=== PATIENT | female | born 1965 | race African-American/Black ===

== ENCOUNTER 2017-06-12 16:34 | Emergency (ER) | payer SELFPAY ==
[~2017-06-12] VITALS: Ht 167.6 cm; Wt 81.5 kg
[~2017-06-12 16:34] MED LIST: Z.0.NO CURRENT MEDS
[2017-06-12 16:35] VITALS: BP 143/78; PULSE 95; RESP 18; TEMP 99.3; O2SAT 98
[2017-06-12] MEDS ORDERED: ASPIRIN 81 MG CHEW TAB CHEW ONE (16:45)
[2017-06-12 17:07] LABS: AUTOMATED NEUTROPHIL # 5.1 TH/MM3 (1.8-7.7); BASOPHIL # 0.1 TH/MM3 (0-0.2); BASOPHIL % 0.8 % (0.0-2.0); EOSINOPHIL # 0.1 TH/MM3 (0-0.4); EOSINOPHIL % 0.9 % (0.0-4.0); HEMATOCRIT 40.4 % (35.0-46.0); HEMOGLOBIN 13.4 GM/DL (11.6-15.3); LYMPH % 34.9 % (9.0-44.0); LYMPHOCYTE # 3.2 TH/MM3 (1.0-4.8); MEAN CELL VOLUME 92.5 FL (80.0-100.0); MEAN CORPUSCULAR HEMOGLOBIN 30.6 PG (27.0-34.0); MEAN CORPUSCULAR HGB CONC 33.1 % (32.0-36.0); MEAN PLATELET VOLUME 8.6 FL (7.0-11.0); MONO % 8.3 % (0.0-8.0); MONOCYTE # 0.8 TH/MM3 (0-0.9); NEUT % 55.1 % (16.0-70.0); PLATELET COUNT 217 TH/MM3 (150-450); RED BLOOD COUNT 4.37 MIL/MM3 (4.00-5.30); RED CELL DISTRIBUTION WIDTH 12.5 % (11.6-17.2); WHITE BLOOD COUNT 9.3 TH/MM3 (4.0-11.0)
[2017-06-12 17:17] LABS: PROTHROMBIN TIME - PATIENT 9.8 SEC (9.8-11.6)
[2017-06-12 17:20] LABS: ALBUMIN 3.7 GM/DL (3.4-5.0); AST (GOT) 16 U/L (15-37); BICARBONATE 22.5 MEQ/L (21.0-32.0); BLOOD UREA NITROGEN 8 MG/DL (7-18); CALCIUM 8.8 MG/DL (8.5-10.1); CHLORIDE 106 MEQ/L (98-107); CREATININE 0.77 MG/DL (0.50-1.00); GLOMERULAR FILTRATION RATE 96 ML/MIN (>89); GLUCOSE,RANDOM 95 MG/DL (74-106); LIPASE 170 U/L (73-393); SODIUM (NA) 137 MEQ/L (136-145)
[2017-06-12 17:21] LABS: ALT (GPT) 24 U/L (10-53)
[2017-06-12 17:25] LABS: ALKALINE PHOSPHATASE 109 U/L (45-117); TOTAL BILIRUBIN ADULT 0.2 MG/DL (0.2-1.0); TOTAL PROTEIN 7.5 GM/DL (6.4-8.2); TROPONIN I LESS THAN 0.02 NG/ML (0.02-0.05)
--- NOTE | 2017-06-12 17:30 | RADRPT ---
EXAM DATE/TIME: 06/12/2017 16:54 [place] COMPARISON: No previous studies available for comparison. INDICATIONS : Chest pain. MEDICAL HISTORY : None. SURGICAL HISTORY : None. ENCOUNTER: Initial ACUITY: 1 day PAIN SCORE: 5/10 LOCATION: Bilateral chest FINDINGS: PA and lateral views of the chest demonstrate the lungs to be symmetrically aerated without evidence of mass, infiltrate or effusion. The cardiomediastinal contours are unremarkable. Osseous structure s are intact. CONCLUSION: No acute disease. Aiden Moctezuma MD FACR on June 12, 2017 at 17:27 Board Certified Radiologist. This report was verified electronically.
--- NOTE | 2017-06-13 20:51 | EKG ---
Date Performed: 06/12/2017 Time Performed: 16:45:19 PTAGE: 51 years EKG: Sinus rhythm POSSIBLE LEFT ATRIAL ENLARGEMENT BORDERLINE ECG PREVIOUS TRACING : 08/24/2008 10.01 SINCE PRIOR TRACING NO SIGNIFICANT CHANGE NOTED DOCTOR: Bethany Cabrera Interpretating Date/Time 06/13/2017 20:50:36
--- NOTE | 2017-06-19 12:31 | PD ---
HPI Chief Complaint: Chest Pain Time Seen by Provider: 16:36 Travel History International Travel<30 days: No Contact w/Intl Traveler<30days: No Traveled to known affect area: No History of Present Illness HPI Pt is a 51-year-old female presenting to emergency for evaluation of SOB, dizziness and chest pain. Patient states the pain is on her left anterior chest wall, it radiates to her left arm. The chest pain started at approximately 4 PM this afternoon. She also reports nausea but has not vomited. Onset was sudden, symptoms are moderate in nature. She has not taken any medications to alleviate the pain. There are no alleviating factors or exacerbating factors. Patient states it feels as if the room is spinning. The dizziness is worse with movement. She rates the pain a 5 out of 10 and states it is sore and pressure-like. PFSH Past Medical History High Cholesterol: Yes Diminished Hearing: No ?: Not Past Surgical History Section: Yes Social History Alcohol Use: No Tobacco Use: Yes (1 PACK A DAY) Substance Use: No Allergies-Medications (Allergen,Severity, Reaction): Coded Allergies: No Known Allergies (Verified , 10/25/06) Reported Meds & Prescriptions Reported Meds & Active Scripts Active Reported No Current Meds (Miscellaneous Medication) Misc Review of Systems Except as stated in HPI: all other systems reviewed are Neg General / Constitutional: No: Fever Eyes: No: Blurred Vision HENT: Positive: Lightheadedness, No: Headaches Cardiovascular: Positive: Chest Pain or Discomfort Respiratory: Positive: Shortness of Breath, No: Cough Gastrointestinal: Positive: Nausea, No: Vomiting, Abdominal Pain Musculoskeletal: No: Myalgias Neurologic: Positive: Dizziness, No: Weakness, Focal Abnormalities Physical Exam Narrative GENERAL: Well-developed, well-nourished, alert female. HEAD: Normocephalic. EYES: No scleral icterus. No injection or drainage. CARDIOVASCULAR: Regular rate RESPIRATORY: No accessory muscle use. Data Data Orders Orders Electrocardiogram (06/12/17 16:38) Ckmb (Isoenzyme) Profile (06/12/17 16:38) Complete Blood Count With Diff (06/12/17 16:38) Comprehensive Metabolic Panel (06/12/17 16:38) Magnesium (Mg) (06/12/17 16:38) Prothrombin Time / Inr (Pt) (06/12/17 16:38) Act Partial Throm Time (Ptt) (06/12/17 16:38) Troponin I (06/12/17 16:38) Lipase (06/12/17 16:38) Chest, Pa & Lat (06/12/17 16:38) Aspirin Chew (Aspirin Chew) (06/12/17 16:45) CKMB (06/12/17 16:48) CKMB% (06/12/17 16:48) Labs Laboratory Tests Test 06/12/17 16:48 White Blood Count 9.3 TH/MM3 Red Blood Count 4.37 MIL/MM3 Hemoglobin 13.4 GM/DL Hematocrit 40.4 % Mean Corpuscular Volume 92.5 FL Mean Corpuscular Hemoglobin 30.6 PG Mean Corpuscular Hemoglobin Concent 33.1 % Red Cell Distribution Width 12.5 % Platelet Count 217 TH/MM3 Mean Platelet Volume 8.6 FL Neutrophils (%) (Auto) 55.1 % Lymphocytes (%) (Auto) 34.9 % Monocytes (%) (Auto) 8.3 % Eosinophils (%) (Auto) 0.9 % Basophils (%) (Auto) 0.8 % Neutrophils # (Auto) 5.1 TH/MM3 Lymphocytes # (Auto) 3.2 TH/MM3 Monocytes # (Auto) 0.8 TH/MM3 Eosinophils # (Auto) 0.1 TH/MM3 Basophils # (Auto) 0.1 TH/MM3 CBC Comment DIFF FINAL Differential Comment Prothrombin Time 9.8 SEC Prothromb Time International Ratio 1.0 RATIO Activated Partial Thromboplast Time 29.7 SEC Blood Urea Nitrogen 8 MG/DL Creatinine 0.77 MG/DL Random Glucose 95 MG/DL Total Protein 7.5 GM/DL Albumin 3.7 GM/DL Calcium Level 8.8 MG/DL Magnesium Level 2.0 MG/DL Alkaline Phosphatase 109 U/L Aspartate Amino Transf (AST/SGOT) 16 U/L Alanine Aminotransferase (ALT/SGPT) 24 U/L Total Bilirubin 0.2 MG/DL Sodium Level 137 MEQ/L Potassium Level 3.7 MEQ/L Chloride Level 106 MEQ/L Carbon Dioxide Level 22.5 MEQ/L Anion Gap 9 MEQ/L Estimat Glomerular Filtration Rate 96 ML/MIN Total Creatine Kinase 121 U/L Creatine Kinase MB LESS THAN 0.5 NG/ML Troponin I LESS THAN 0.02 NG/ML Lipase 170 U/L MDM Medical Decision Making Medical Screen Exam Complete: Yes Emergency Medical Condition: Yes Differential Diagnosis ACS vs NSTEMI vs USA vs bronchitis versus pneumonia versus pleurisy versus metabolic abnormality versus other Narrative Course Patient is a 51-year-old female presented to emergency evaluation of chest pain. Vital signs reviewed and are stable. Chest pain protocol was initiated in triage. Patient is awaiting bed placement. Patient sent it to the triage desk stating that she longer wanted to wait and would follow-up. Patient was encouraged to stay to be further evaluated, she was advised on the adverse outcomes that were possible. Patient continue to decline care. Patient left AMA. Patient Leyla Moreno has decided to leave the hospital against medical advice. This patient has the capacity to refuse care and understands the risks of leaving, including permanent disability and/or , and has had an opportunity to ask questions about her condition. The patient has been informed that she may return for care at any time, and follow up has been arranged/ advised. Protocol findings are as follows. Labs reviewed, no acute findings identified. Initial set of cardiac enzymes are negative. Chest x-ray which was read by the radiologist as no acute disease. Diagnosis Primary Impression: Left against medical advice Disposition: 07 AGAINST MEDICAL ADVICE Cayla Cotto Jun 19, 2017 12:31
== END 2017-06-12 20:55 | disposition left against medical advice (07) ==
LOC: NED 16:34
DX: R07.9 Chest pain, unspecified (principal); R94.31 Abnormal electrocardiogram [ECG] [EKG]; R42 Dizziness and giddiness; R06.02 Shortness of breath; R11.0 Nausea; E78.00 Pure hypercholesterolemia, unspecified; F17.200 Nicotine dependence, unspecified, uncomplicated
CPT/HCPCS: 71046; 80053; 82550; 82552; 83690; 83735; 84484; 85025; 85610; 85730; 93005; 99285